=== PATIENT | male | born 1970 | race Caucasian/White ===

== ENCOUNTER 2018-08-12 15:46 | Emergency (ER) | payer BC ==
[~2018-08-12] VITALS: Ht 193 cm; Wt 150.1 kg
--- NOTE | ~2018-08-12 | EKG ---
[address] [address] ELECTROCARDIOGRAM REPORT Name: LENNY FARNSWORTH [id number] Admission: 08/12/18 Attend Phys: Discharge: 08/12/18 Date of : 74 Report #: [id number] THIS REPORT FOR: //name// [facility] ED Test Date: 2018-08-12 Test Time: 15:57:20 Pat Name: LENNY FARNSWORHT Department: Room: Gender: Reject Opener: [place] : 1970 Requested By: Flor Juarez Order Number: [id number] MD: Manfred Mendoza Measurements Intervals [place] Rate: 57 P: 29 AL: 168 QRS: 11 QRSD: 108 T: 5 QT: 406 QTc: 396 Interpretive Statements Sinus rhythm No previous ECG available for comparison Electronically Signed On 08-14-2018 20:25:10 [employer] by Manfred Mendoza [email or web address] <ELECTRONICALLY SIGNED> By: Manfred Mendoza MD 08/14/182024 1557 1557 Manfred [email or web address] MD /EPI
[2018-08-12 16:14] LABS: ABSOLUTE NEUTROPHILS 6.4 thou/uL (1.4-8.2); BASOPHILS 0.7 % (0.0-2.0); EOSINOPHILS 1.7 % (0.0-3.0); HEMOGLOBIN 16.1 gm/dL (14.0-18.0); LYMPHOCYTES 23.9 % (24.0-44.0); MCH 31.8 pg (26.0-34.0); MCHC 35.1 g/dL (28.0-37.0); MCV 90.6 fL (80.0-100.0); MONOCYTES 9.1 % (1.0-8.0); PLATELET COUNT 292 thou/uL (150-400); POLYS 64.6 % (36.0-66.0); RBC 5.08 mil/uL (4.50-6.00); RDW 12.8 % (10.5-14.5); WBC 9.9 thou/uL (4.0-11.0)
[2018-08-12 16:24] LABS: CALCIUM 9.6 mg/dL (8.5-10.1); CREATININE 0.9 mg/dL (0.7-1.3); POTASSIUM 4.1 mmol/L (3.5-5.1)
[2018-08-12 16:29] LABS: ALBUMIN 3.8 g/dL (3.4-5.0); TOTAL BILIRUBIN 0.5 mg/dL (<0.1-1.0); TOTAL PROTEIN 7.9 g/dL (6.4-8.2)
[2018-08-12 17:25] VITALS: BP 128/75
== END 2018-08-12 18:14 | disposition home or self-care (01) ==
LOC: ER 15:46
PROVIDERS: Physician Assistant
DX: R06.00 Dyspnea, unspecified (principal); Z88.1 Allergy status to other antibiotic agents; Z98.890 Other specified postprocedural states

== ENCOUNTER → 2020-01-10 | Outpatient (CLI) | payer BC, OTHER | LOC: SJCVCIMAG 11:07 | DX: R00.1 Bradycardia, unspecified (principal); G47.33 Obstructive sleep apnea (adult) (pediatric); I10 Essential (primary) hypertension; E78.00 Pure hypercholesterolemia, unspecified; E78.5 Hyperlipidemia, unspecified ==